=== PATIENT | male | born 1945 | race Caucasian/White ===

== ENCOUNTER 2020-11-03 06:22 | Day surgery (SDC) | payer MEDICARE, BC ==
[2020-11-02 14:36] VITALS: BMI 27.0
[2020-11-03] MEDS ORDERED: Levofloxacin 500 mg/D5W 100 ml Premix Bag ONE (07:41)
[2020-11-03] MEDS ORDERED: Ondansetron PF 4 MG/2 ML Vial ONE (08:36)
[2020-11-03] MEDS ORDERED: Lidocaine 1% PF 5 ML VIAL ONE (08:36)
[2020-11-03] MEDS ORDERED: Dexamethasone 20 MG/5 ML VIAL ONE (08:36)
[2020-11-03] MEDS ORDERED: Fentanyl 100 MCG/2 ML VIAL ONE (08:39)
[2020-11-03] MEDS ORDERED: Phenazopyridine HCl 100 MG TAB ONE (09:28)
[2020-11-03] MEDS ORDERED: Oxybutynin 5 MG TAB ONE (09:28)
[2020-11-03] MEDS ORDERED: Ketorolac Tromethamine 30 MG/ML VIAL ONE (09:28)
== END 2020-11-03 11:20 | disposition home or self-care (01) ==
LOC: SDC 06:22
PROVIDERS: ATTEND Urology
PROC: 0T7D8DZ Dilation of Urethra with Intraluminal Device, Via Natural or Artificial Opening Endoscopic (ICD-10-PCS; principal; 2020-11-03)
DX: N40.1 Benign prostatic hyperplasia with lower urinary tract symptoms (principal); R33.8 Other retention of urine; Z79.82 Long term (current) use of aspirin; Z79.899 Other long term (current) drug therapy; Z88.0 Allergy status to penicillin; Z88.1 Allergy status to other antibiotic agents; Z88.2 Allergy status to sulfonamides; Z88.5 Allergy status to narcotic agent
CPT/HCPCS: C9740; L8699; J1100; J1885; J1956; J2405; J3010